=== PATIENT | male | born 1960 | race Caucasian/White ===

== ENCOUNTER 2017-09-07 18:11 | Emergency (ER) | payer MEDICAID, OTHER ==
[~2017-09-07] VITALS: Ht 172.7 cm; Wt 87.0 kg
[2017-09-07 18:13] VITALS: Ht 172.7 cm; Wt 87.0 kg
[2017-09-07] MEDS ORDERED: EPINEPHrine 1 MG INJ SC STA (19:08)
[2017-09-07] MEDS ORDERED: FAMOTIDINE 20 MG INJ IV ONE (19:30)
[2017-09-07] MEDS ORDERED: SOD CHLORIDE 0.9% 1,000 ML IV ONE (19:30)
[2017-09-07] MEDS ORDERED: METHYLPREDNISOLONE 125 MG INJ IV ONE (19:30)
--- NOTE | 2017-09-07 19:33 | ERD ---
ER Documentation Chief Complaint Date/Time DATE: 09/07/17 TIME: 19:29 Chief Complaint Complains of allergic reaction from seafood HPI This is a 57-year-old male presents to the ER stating that he is having allergic reaction after eating seafood. Patient noticed his lips got swollen his right eye is swollen. He also has hives. Patient states he took 2 Benadryl already, however it is not working with his reaction. He denies any difficulty breathing, shortness of breath, wheezing. Has denies any fevers or chills. ROS 12 point review of systems was done, all negative except per HPI. Medications Home Meds Active Scripts Prednisone* (Prednisone*) 20 Mg Tab, 60 MG PO DAILY for 5 Days, TAB Prov:MURTAZA BUSBY 09/07/17 Diphenhydramine Hcl* (Benadryl*) 25 Mg Cap, 25 MG PO Q6, #30 CAP Prov:KEHINDESANJUMURTAZA C 09/07/17 Allergies Allergies: Coded Allergies: No Known Allergy (Unverified , 09/22/14) PMhx/Soc History of Surgery: Yes (PLATE IN BACK) Anesthesia Reaction: No Hx Neurological Disorder: No Hx Respiratory Disorders: No Hx Cardiac Disorders: Yes (HTN) Hx Psychiatric Problems: No Hx Miscellaneous Medical Probl: No Hx Alcohol Use: Yes (1 serving of vodka/day) Hx Substance Use: No Hx Tobacco Use: Yes (8 sticks/day) Smoking Status: Current every day smoker Physical Exam Vitals Physical Exam GENERAL:patient is intoxicated with alcohol, however is able to have a conversation and discuss what is wrong HEENT: Atraumatic. Any of his upper lip and his right upper eyelid. There is no swelling of the tongue, no uvular deviation no kissing tonsils. NECK: C-spine is soft and supple. There is no cervical lymphadenopathy. CHEST: Clear to auscultation bilaterally. There are no rales, wheezes or rhonchi. HEART: Regular rate and rhythm. No murmurs, clicks, rubs or gallops. NEURO: Alert and oriented. CN2-12 are intact. muscle strength is normal and symmetrical in upper and lower extremities. SKIN: Hives all over the body. Results 24 hrs Current Medications Medications (Trade) Dose Ordered Sig/Rossy Route PRN Reason Start Time Stop Time Status Last Admin Dose Admin Sodium Chloride (NS) 1,000 ml @ 1,000 mls/hr Q1H ONCE IV 09/07/17 19:30 09/07/17 20:29 DC 09/07/17 19:36 Famotidine (Pepcid Iv) 20 mg ONCE ONCE IV 09/07/17 19:30 09/07/17 19:31 DC 09/07/17 19:34 Methylprednisolone Sodium Succinate (Solu-Medrol) 80 mg ONCE ONCE IV 09/07/17 19:30 09/07/17 19:31 DC 09/07/17 19:34 Epinephrine (EPINEPHrine) 0.3 mg ONCE STAT SC 09/07/17 19:08 09/07/17 19:10 DC 09/07/17 19:36 Diphenhydramine HCl (Benadryl) 50 mg ONCE ONCE IM 09/07/17 20:00 09/07/17 20:01 DC 09/07/17 19:51 Procedures/MDM I discussed this case with my supervising physician Dr. Horne, patient was given epinephrine, Solu-Medrol, Pepcid, normal saline. He was not given Benadryl since he already had 2 25 mg Benadryl in the last hour. When I reexamined the patient, he still had significant swelling of his lip and I, therefore 50 mg IM of Benadryl was ordered. Patient was moved to ER 1 for observations and until patient sobered up. Through the ER course patient was stable, he did not have any evidence of anaphylactic shock. He was never hypoxic or in any respiratory distress. Will be sent home with a short course of steroids and Benadryl. He is to follow-up with his primary care doctor within 1-2 days return to ER sooner if symptoms worsen. My medical decision shared with the patient he understands and agrees with plan. Departure Diagnosis: Primary Impression: Allergic reaction Condition: Stable MURTAZA BUSBY Sep 07, 2017 19:33 MURTAZA BUSBY Sep 07, 2017 19:33
[2017-09-07] MEDS ORDERED: BEN25 PO (19:54)
[2017-09-07] MEDS ORDERED: PRED20TA PO (19:55)
[2017-09-07] MEDS ORDERED: DIPHENHYDRAMINE 50 MG INJ IM ONE (20:00)
[2017-09-07 21:14] VITALS: BP 122/68; PULSE 99; RESP 20; TEMP 97.9
== END 2017-09-07 22:00 | disposition home or self-care (01) ==
LOC: FTE 18:11 → E/R 22:00
DX: T78.1XXA Other adverse food reactions, not elsewhere classified, initial encounter (principal); I10 Essential (primary) hypertension; F17.210 Nicotine dependence, cigarettes, uncomplicated; Z91.013 Allergy to seafood
CPT/HCPCS: 96372; 96374; 96375; J0171; J1200; J2930; J7030; Z7502; Z7610